=== PATIENT | female | born 1970 | race Caucasian/White ===

== ENCOUNTER 2019-07-10 17:05 | Emergency (ER) | payer BC ==
[2019-07-10 17:31] VITALS: BP 154/97
[2019-07-10] MEDS ORDERED: Tetan/Diph/Pertus SYR(Tdap)* 0.5 ML SYR(BOOSTRIX) use SYR contains LATEX IM ONE (17:53)
--- NOTE | 2019-07-10 18:16 | UC ---
Laceration HPI - HPI Summary HPI Summary: Pt presents with c/o laceration to left 5th finger. Pt is unsure of last tentanus. - History Of Current Complaint Chief Complaint: UCWounds Stated Complaint: LEFT HAND-PINKY LACERATION Time Seen by Provider: 07/10/19 17:29 Hx Obtained From: Patient Hx Last Menstrual Period: has control in arm Laceration Location: Finger Mechanism Of Injury: Sharp Trauma Onset/Duration: Sudden Onset Severity: Mild Pain Intensity: 0 Aggravating Factors: Movement - Allergies/Home Medications Allergies/Adverse Reactions: Allergies Allergy/AdvReac Type Severity Reaction Status Date / Time Penicillins Allergy Rash Verified 07/10/19 17:31 Home Medications: Home Medications Cholesterol Med 07/10/19 [History] buPROPion TAB* [Wellbutrin TAB*] 150 mg PO BID 07/10/19 [History Confirmed 07/10] PMH/Surg Hx/FS Hx/Imm Hx Previously Healthy: Yes - Surgical History Surgical History: None - Family History Known Family History: Positive: Cardiac Disease - Social History Occupation: Employed Full-time Lives: With Family Alcohol Use: Occasionally Substance Use Type: None Smoking Status (MU): Current Every Day Smoker Type: Cigarettes Amount Used/How Often: 1/2 ppd Have You Smoked in the Last Year: Yes - Immunization History Most Recent Tetanus Shot: unknown Vaccination Up to Date: No Review of Systems All Other Systems Reviewed And Are Negative: Yes Constitutional: Positive: Negative Skin: Positive: Other - laceration left 5th finger Eyes: Positive: Negative ENT: Positive: Negative Respiratory: Positive: Negative Cardiovascular: Positive: Negative Gastrointestinal: Positive: Negative Genitourinary: Positive: Negative Motor: Positive: Negative Neurovascular: Positive: Negative Musculoskeletal: Positive: Myalgia - left 5th finger Neurological: Positive: Negative Psychological: Positive: Negative Is Patient Immunocompromised?: No Physical Exam Triage Information Reviewed: Yes Appearance: Pain Distress Vital Signs: Initial Vital Signs Temp 98.5 F 07/10/19 17:27 Pulse 124 07/10/19 17:27 Resp 18 07/10/19 17:27 BP 154/97 07/10/19 17:27 Pulse Ox 96 07/10/19 17:27 Vital Signs Reviewed: Yes Eye Exam: Normal ENT Exam: Normal Dental Exam: Normal Neck exam: Normal Respiratory: Positive: No respiratory distress Musculoskeletal: Positive: Strength Intact, ROM Intact Neurological Exam: Normal Psychological Exam: Normal Skin Exam: Other - laceration left 5th finger Laceration Repair - Laceration Repair 1 Description: Irregular Laceration Size After Repair: Length (cm) - 2, Width (mm) - 3, Depth (mm) - 2 Modified For Repair: No Cleansing Completed Via Routine Prep: Yes Irrigation With Pressure Irrigation Device: Yes Closure Material: Skin Adhesive, SteriStrips Closure Method: Single Layer Laceration Course/Dx - Course/Dx Course Of Treatment: I discussed the need to keep finger splinted and wound clean and dry. Pt verbalized understanding and agreed to plan of care. - Differential Dx - Laceration/Wound Differental Diagnoses: Laceration - Diagnosis Provider Diagnosis: Laceration of left little finger Discharge - Sign-Out/Discharge Documenting (check all that apply): Patient Departure All imaging exams completed and their final reports reviewed: No Studies - Discharge Plan Condition: Stable Disposition: HOME Patient Education Materials: Finger Laceration (ED), Skin Adhesive Care (ED), Steristrips (ED) Referrals: Cristina Tejada PA [Primary Care Provider] - If Needed Additional Instructions: Please keep your dressing clean and dry. Do not remove the steri strips unless they become soiled. Please do not apply antibiotic ointment. Please wear the finger splint for no less than 7 days. Wear the splint 24 hours a day and keep clean and dry. - Billing Disposition and Condition Condition: STABLE Disposition: Home
== END 2019-07-10 18:17 | disposition home or self-care (01) ==
LOC: UCCORT 17:05
DX: S61.217A Laceration without foreign body of left little finger without damage to nail, initial encounter (principal); W45.8XXA Other foreign body or object entering through skin, initial encounter; Y92.9 Unspecified place or not applicable; Z88.0 Allergy status to penicillin; F17.210 Nicotine dependence, cigarettes, uncomplicated
CPT/HCPCS: 12001; 90471; 90715; 99201; G0463